=== PATIENT | male | born 1945 | race Caucasian/White ===

== ENCOUNTER 2017-12-23 10:07 | Outpatient (CLI) | payer OTHER ==
--- NOTE | 2017-12-23 12:07 | RAD ---
RIGHT KNEE 3 VIEWS: HISTORY: Arthritis. COMPARISON: None. FINDINGS: Small medial and lateral compartment osteophytes as well as patellofemoral osteophytes. No significa nt joint effusion. No acute fracture or malalignment. Medial soft tissue surgical clips are present. IMPRESSION: Mild tricompartment degenerative disease. No acute fracture or malalignment. POS: OFF
== END 2017-12-23 10:08 | disposition home or self-care (01) ==
LOC: MADRAD 10:07
PROVIDERS: ATTEND Orthopaedic Surgery
DX: M17.11 Unilateral primary osteoarthritis, right knee (principal)